=== PATIENT | female | born 1950 | race Caucasian/White ===

== ENCOUNTER → 2017-10-10 | Outpatient (CLI) | payer MEDICARE, MEDICAID | END | disposition home or self-care (01) | LOC: PCVCCLINIC 14:26 | PROVIDERS: ATTEND Internal Medicine | DX: I11.0 Hypertensive heart disease with heart failure (principal); I50.22 Chronic systolic (congestive) heart failure; I42.9 Cardiomyopathy, unspecified; E78.5 Hyperlipidemia, unspecified; Z79.82 Long term (current) use of aspirin; Z79.899 Other long term (current) drug therapy | CPT/HCPCS: 80061; 93005 ==

== ENCOUNTER → 2017-10-17 | Outpatient (CLI) | payer MEDICARE, MEDICAID ==
--- NOTE | 2017-10-18 14:34 | PCVCIMAG ---
APPROVED REPORT Study performed: 10/17/2017 15:11:49 EXAM: Comprehensive 2D, Doppler, and color-flow Echocardiogram Patient Location: Echo lab Room #: 3Status: routine BSA: 2.42 HR: 79 bpmBP: 130/60 mmHg Rhythm: NSR Other Information Study Quality: Technically Limited Risk Factors: Cardiac Risk Factors: DM,ESRD,DLP Indications Non STEMI CAD Cardiomyopathy 2D Dimensions LVEF(%): 43.16 (>50%) IVSd: 13.34 (7-11mm)LVOT Diam: 21.33 (18-24mm) LVDd: 43.68 mm PWd: 13.90 (7-11mm)Ascending Ao: 27.28 (22-36mm) LVDs: 34.46 (25-40mm) Left Atrium: 35.40 (27-40mm) Aortic Root: 18.66 mm Miller's LVEF: 43.16 % Volumes Left Atrial Volume (Systole) Single Plane 4CH: 51.42 mLSingle Plane 2CH: 74.24 mL Aortic Valve AoV Peak Jasvir.: 1.14 m/s AO Peak Gr.: 5.17 mmHgLVOT Max P.55 mmHg LVOT Max V: 0.62 m/s FRANCISCO J Vmax: 1.95 cm2 Mitral Valve E/A Ratio: 1.3 MV Decel. Time: 159.29 ms MV E Max Jasvir.: 1.09 m/s MV A Jasvir.: 0.85 m/s MV PHT: 46.19 ms IVRT: 55.36 ms Pulmonary Valve PV Peak Jasvir.: 0.67 m/sPV Peak Gr.: 1.81 mmHg Pulmonary Vein P Vein S: 0.16 m/sP Vein A: 0.18 m/s P Vein D: 0.26 m/sP Vein A Dur.: 96.9 msec P Vein S/D Ratio: 0.62 Tricuspid Valve TV Vmax: 0.54 m/s Left Ventricle The left ventricle is normal size. Apical aneurysm is present. Global hypokinesis with multiple wall motion abnormalities.History of a NSTMI ; ucy-mi-dmtfms anterior and distal inferior segments. Mid distal septal wall severe hypokinetic-akinetic and dilated. Lateral wall is poorly seen There is normal left ventricular wall thickness. Left ventricular systolic function is severely decreased. The EF is visually estimated at 25-30% Right Ventricle The right ventricle is normal size. The right ventricular systolic function is normal. Atria The left atrium size is normal. The right atrium size is normal. Aortic Valve Aortic valve is trileaflet. Aortic valve leaflets are mildly sclerotic but open well. No aortic regurgitation is present. There is no aortic valvular stenosis. Mitral Valve The mitral valve is normal in structure. There is minimal mitral annular calcification. There is no mitral valve regurgitation noted. No evidence of mitral valve stenosis. Tricuspid Valve Tricuspid valve is grossly normal in structure and function. There is no tricuspid valve regurgitation noted. Pulmonic Valve Pulmonic valve is grossly normal in structure. There is no pulmonic valvular regurgitation. Great Vessels The aortic root is normal in size. Aortic arch is not well visualized. The inferior vena cava is not visualized. Pericardium There is no pericardial effusion. There is no pleural effusion. <Conclusion> The left ventricle is normal size. Apical aneurysm is present. Left ventricular systolic function is severely decreased. The EF is visually estimated at 25-30% Aortic valve is trileaflet. Aortic valve leaflets are mildly sclerotic but open well. The mitral valve is normal in structure. There is minimal mitral annular calcification. Tricuspid valve is grossly normal in structure and function. Pulmonic valve is grossly normal in structure. There is no pericardial effusion.
== END | disposition home or self-care (01) ==
LOC: PCVCIMAG 16:19
PROVIDERS: ATTEND Internal Medicine
DX: I21.4 Non-ST elevation (NSTEMI) myocardial infarction (principal); I25.10 Atherosclerotic heart disease of native coronary artery without angina pectoris; I42.9 Cardiomyopathy, unspecified; I50.9 Heart failure, unspecified; E78.5 Hyperlipidemia, unspecified
CPT/HCPCS: 93306

== ENCOUNTER → 2017-11-05 | Outpatient (CLI) | payer MEDICARE, MEDICAID | END | disposition home or self-care (01) | LOC: PCVCCLINIC 15:28 | DX: Z01.810 Encounter for preprocedural cardiovascular examination (principal); I25.5 Ischemic cardiomyopathy; I10 Essential (primary) hypertension; E78.5 Hyperlipidemia, unspecified; E11.9 Type 2 diabetes mellitus without complications; Z79.4 Long term (current) use of insulin; Z88.0 Allergy status to penicillin; Z79.82 Long term (current) use of aspirin; Z79.899 Other long term (current) drug therapy; Z87.891 Personal history of nicotine dependence | CPT/HCPCS: 93005; G0463 ==

== ENCOUNTER → 2018-05-08 | Outpatient (CLI) | payer MEDICARE, MEDICAID | END | disposition home or self-care (01) | LOC: PCVCCLINIC 15:10 | DX: I12.0 Hypertensive chronic kidney disease with stage 5 chronic kidney disease or end stage renal disease (principal); E11.22 Type 2 diabetes mellitus with diabetic chronic kidney disease; N18.6 End stage renal disease; E78.5 Hyperlipidemia, unspecified; Z79.4 Long term (current) use of insulin; Z88.0 Allergy status to penicillin; Z88.8 Allergy status to other drugs, medicaments and biological substances | CPT/HCPCS: 80061 ==

== ENCOUNTER → 2018-07-03 | Outpatient (CLI) | payer MEDICARE, MEDICAID | END | disposition home or self-care (01) | LOC: PCVCCLINIC 13:57 | PROVIDERS: ATTEND Internal Medicine | DX: I42.9 Cardiomyopathy, unspecified (principal); I11.0 Hypertensive heart disease with heart failure; I50.22 Chronic systolic (congestive) heart failure; Z79.82 Long term (current) use of aspirin; Z79.899 Other long term (current) drug therapy | CPT/HCPCS: G0463 ==

== ENCOUNTER → 2018-09-11 | Outpatient (CLI) | payer MEDICARE, MEDICAID ==
[~2018-09-11] MED LIST: PERFLUTREN PROTEIN-A MICROSPHR 0.22 MG/ML 3 ML VIAL. IV ONE
--- NOTE | 2018-09-11 17:57 | PCVCIMAG ---
APPROVED REPORT Study performed: 09/11/2018 12:58:54 EXAM: Comprehensive 2D, Doppler, and color-flow Echocardiogram with contrast Patient Location: Echo lab Status: routine BSA: 2.43 HR: 68 bpm Rhythm: NSR Other Information Study Quality: Technically Limited Risk Factors: Cardiac Risk Factors: HTN, Hyperlipidemia Indications Hypertension/HDD CHF, Hx of apical aneurysm, Renal failure, Diaylsis, cardiomyopathy Echo Enhancing Agent Indication: Endocardial border delineation Agent(s) / Amount(s) Used: Fugoo cc 2D Dimensions IVSd: 14.83 (7-11mm)LVOT Diam: 18.86 (18-24mm) LVDd: 51.73 mm PWd: 13.72 (7-11mm)Ascending Ao: 32.00 (22-36mm) LVDs: 40.26 (25-40mm) Left Atrium: 30.41 (27-40mm) Aortic Root: 25.67 mm LV Single Plane 4CH: 25.74 % Volumes Left Atrial Volume (Systole) Single Plane 4CH: 62.38 mLSingle Plane 2CH: 70.12 mL LA ESV Index: 29.00 mL/m2 Aortic Valve AoV Peak Jasvir.: 1.09 m/s AO Peak Gr.: 4.79 mmHgLVOT Max P.84 mmHg LVOT Max V: 0.66 m/s FRANCISCO J Vmax: 1.68 cm2 Mitral Valve E/A Ratio: 1.1 MV Decel. Time: 164.45 ms MV E Max Jasvir.: 1.09 m/s MV A Jasvir.: 0.99 m/s Pulmonary Valve PV Peak Gr.: 2.07 mmHg Tricuspid Valve TR Peak Jasvir.: 3.40 m/s TR Peak Gr.: 46.13 mmHg Left Ventricle The left ventricle is normal size. Global hypokinesis Mild concentric left ventricular hypertrophy. Left ventricular ejection fraction is moderate to severely decreased. LVEF is 20%. This study is not technically sufficient to allow evaluation of the LV diastolic function. Right Ventricle The right ventricle is normal size. The right ventricular systolic function is normal. Atria The left atrium size is normal. The right atrium size is normal. Aortic Valve The aortic valve is normal in structure. No aortic regurgitation is present. There is no aortic valvular stenosis. Mitral Valve The mitral valve is normal in structure. There is no mitral valve regurgitation noted. No evidence of mitral valve stenosis. Tricuspid Valve The tricuspid valve is normal in structure. Trace tricuspid regurgitation. Pulmonary artery pressure is 44mmHG. Pulmonic Valve The pulmonary valve is normal in structure. There is no pulmonic valvular regurgitation. Great Vessels The aortic root is normal in size. IVC is normal in size and collapses >50% with inspiration. Pericardium There is no pericardial effusion. <Conclusion> The left ventricle is normal size. LVEF is 20%. Global hypokinesis The aortic valve is normal in structure. The mitral valve is normal in structure. The tricuspid valve is normal in structure. Trace tricuspid regurgitation. Pulmonary artery pressure is 44mmHG. The pulmonary valve is normal in structure. There is no pericardial effusion.
== END | disposition home or self-care (01) ==
LOC: PCVCIMAG 13:51
PROVIDERS: ATTEND Internal Medicine
DX: I11.0 Hypertensive heart disease with heart failure (principal); I50.9 Heart failure, unspecified; R06.09 Other forms of dyspnea
CPT/HCPCS: C8929; Q9956

== ENCOUNTER → 2019-01-08 | Outpatient (CLI) | payer MEDICARE, MEDICAID | END | disposition home or self-care (01) | LOC: PCVCCLINIC 11:34 | PROVIDERS: ATTEND Internal Medicine | DX: Z01.810 Encounter for preprocedural cardiovascular examination (principal); I25.5 Ischemic cardiomyopathy; I13.2 Hypertensive heart and chronic kidney disease with heart failure and with stage 5 chronic kidney disease, or end stage renal disease; I50.22 Chronic systolic (congestive) heart failure; N18.6 End stage renal disease; E78.5 Hyperlipidemia, unspecified; E66.9 Obesity, unspecified; E78.00 Pure hypercholesterolemia, unspecified; R10.9 Unspecified abdominal pain; R94.31 Abnormal electrocardiogram [ECG] [EKG]; Z88.2 Allergy status to sulfonamides; Z88.0 Allergy status to penicillin; Z88.8 Allergy status to other drugs, medicaments and biological substances; Z79.82 Long term (current) use of aspirin; Z79.899 Other long term (current) drug therapy | CPT/HCPCS: 93005; G0463; 36415; 80061 ==